=== PATIENT | female | born 1945 | race Caucasian/White ===

== ENCOUNTER 2016-10-18 13:48 | Emergency (ER) | payer OTHER ==
[~2016-10-18] VITALS: Ht 157.5 cm; Wt 68.0 kg
[2016-10-18 13:50] VITALS: BP 159/89; PULSE 68; RESP 15; TEMP 98.2; O2SAT 98
--- NOTE | 2016-10-18 15:17 | PD ---
HPI Chief Complaint: Head Injury Time Seen by Provider: 15:17 Travel History International Travel<30 days: No Contact w/Intl Traveler<30days: No Traveled to known affect area: No History of Present Illness HPI 71-year-old female came to the emergency room for headache and some amount of dizziness after a fall and head injury 2 weeks ago. Patient says that she slipped and fell backwards and smacked her head hard against a concrete floor. This happened 2 weeks ago. At that time she had a goose egg but did not come to the emergency room. Eventually the pain went away. But now she is getting vague headache and some dizzy sensation which are exacerbated during car rides or reading book. She does not usually get headaches. She has some nausea but no vomiting. Her appetite is still okay. Patient takes 1 baby aspirin every day. Vital signs are stable. [facility] Past Medical History Narrative Medical List of her past medical, surgical, social and family history is reviewed from the nursing note. Diabetes: Yes (TYPE2) ?: Not Social History Tobacco Use: No Allergies-Medications (Allergen,Severity, Reaction): Coded Allergies: Penicillin (Verified Allergy, Intermediate, Rash, 10/18/16) Comments List of her allergies reviewed from the nursing note. Reported Meds & Prescriptions Reported Meds & Active Scripts Active Reported Aspirin Children's (Aspirin) 81 Mg Chew 81 Mg CHEW DAILY Verapamil (Verapamil HCl) 120 Mg Tab 240 Mg PO DAILY Levothyroxine (Levothyroxine Sodium) 50 Mcg Tab 50 Mcg PO DAILY Simvastatin 20 Mg Tab 20 Mg PO DAILY Metoprolol Succinate ER 24 HR (Metoprolol Succinate) 25 Mg Tab 25 Mg PO DAILY Narrative Medication List of her home medications reviewed from the nursing note. Review of Systems Except as stated in HPI: all other systems reviewed are Neg Physical Exam Narrative GENERAL: Awake, alert, anxious, no obvious distress SKIN: Focused skin assessment warm/dry. HEAD: Atraumatic. Normocephalic. EYES: Pupils equal and round. No scleral icterus. No injection or drainage. ENT: No nasal bleeding or discharge. Mucous membranes pink and moist. NECK: Trachea midline. No JVD. CARDIOVASCULAR: Regular rate and rhythm. No murmur appreciated. RESPIRATORY: No accessory muscle use. Clear to auscultation. Breath sounds equal bilaterally. GASTROINTESTINAL: Abdomen soft, non-tender, nondistended. Hepatic and splenic margins not palpable. MUSCULOSKELETAL: No obvious deformities. No clubbing. No cyanosis. No edema. NEUROLOGICAL: Awake and alert. No obvious cranial nerve deficits. Motor grossly within normal limits. Normal speech. PSYCHIATRIC: Appropriate mood and affect; insight and judgment normal. Data Data Last Documented VS Orders Ct Brain W/O Iv Contrast(Rout) (10/18/16 ) Ct Cerv Spine W/O Contrast (10/18/16 ) MDM Medical Decision Making Medical Screen Exam Complete: Yes Emergency Medical Condition: Yes Medical Record Reviewed: Yes Differential Diagnosis Intracranial bleed, concussion Narrative Course 5:[address] scan report of the C-spine and brain is back and is negative for any acute injuries. I'll discharge her home. Procedures EKG Prior to Arrival: No Diagnosis Primary Impression: Postconcussion syndrome Referrals: Primary Care Physician Additional Instructions: Drink lots of fluid and caffeinated beverage. Do not read books her newspaper find Ciro to much, limit watching television, computer, tablets, smartphone etc. to no more than 30-60 minutes a day. Follow-up with your primary care if the symptoms persist. He should not be driving until your completely symptom- free. Med/Other Pt SpecificInfo: No Change to Meds Disposition: 01 DISCHARGE HOME Condition: Stable Meg Patton MD Oct 18, 2016 15:17 etc. to no more than 30-60 minutes a day. Follow-up with your primary care if the symptoms persist. He should not be driving until your completely symptom- free. Med/Other Pt SpecificInfo: No Change to Meds Disposition: DISCHARGE HOME Condition: Meg Billings MD Oct 18, 2016 15:17
[2016-10-18] MEDS ORDERED: VERA120T3 PO (15:29)
[2016-10-18] MEDS ORDERED: ASPI81CH7 CHEW (15:29)
[2016-10-18] MEDS ORDERED: SIMV20TA PO (15:29)
[2016-10-18] MEDS ORDERED: LEVO50TA4 PO (15:29)
[2016-10-18] MEDS ORDERED: METO25TA6 PO (15:29)
--- NOTE | 2016-10-18 16:47 | RADRPT ---
EXAM DATE/TIME: 10/18/2016 16:29 [facility] COMPARISON: No previous studies available for comparison. INDICATIONS : Patient fell and hit hit 2 weeks ago, complains of headache. RADIATION DOSE: 29.66 CTDIvol (mGy) MEDICAL HISTORY : Hypertension. Diabetes mellitus type 2. A-fib SURGICAL HISTORY : None. ENCOUNTER: Initial ACUITY: 2 weeks PAIN SCALE: 5/10 LOCATION: cranial TECHNIQUE: Multiple contiguous axial images were obtained of the head. Using automated exposure control and adj ustment of the mA and/or kV according to patient size, radiation dose was kept as low as reasonably a chievable to obtain optimal diagnostic quality images. DICOM format image data is available electro nically for review and comparison. FINDINGS: CEREBRUM: The ventricles are normal for age. No evidence of midline shift, mass lesion, hemorrhage or acute in farction. No extra-axial fluid collections are seen. POSTERIOR FOSSA: The cerebellum and brainstem are intact. The 4th ventricle is midline. The cerebellopontine angle i s unremarkable. EXTRACRANIAL: The visualized portion of the orbits is intact. SKULL: The calvaria is intact. No evidence of skull fracture. CONCLUSION: Normal examination. Topher Mixon MD on October 18, 2016 at 16:45 Board Certified Radiologist. This report was verified electronically.
--- NOTE | 2016-10-18 16:56 | RADRPT ---
EXAM DATE/TIME: 10/18/2016 16:29 [facility] COMPARISON: No previous studies available for comparison. INDICATIONS : Patient fell 2 weeks ago hitting head, complains of headache. RADIATION DOSE: 18.97 CTDIvol (mGy) MEDICAL HISTORY : Hypertension. Diabetes mellitus type 2. A-fib SURGICAL HISTORY : None. ENCOUNTER: Initial ACUITY: 2 weeks PAIN SCALE: 5/10 LOCATION: Left neck TECHNIQUE: Volumetric scanning of the cervical spine was performed. Multiplanar reconstructions in the sagittal, coronal and oblique axial planes were performed. Using automated exposure control and adjustment o f the mA and/or kV according to patient size, radiation dose was kept as low as reasonably achievable to obtain optimal diagnostic quality images. DICOM format image data is available electronically f or review and comparison. FINDINGS: VERTEBRAE: Normal vertebral body height. Left-sided degenerative facet disease at C4-5. Subchondral cyst in C7. ALIGNMENT: No evidence of subluxation. C2-C3: The bony spinal canal is normal in size. No evidence of disc bulge or herniation. The neural forami na are bilaterally patent. C3-C4: The bony spinal canal is normal in size. No evidence of disc bulge or herniation. The neural forami na are bilaterally patent. C4-C5: The bony spinal canal is normal in size. No evidence of disc bulge or herniation. The neural forami na are bilaterally patent. C5-C6: The bony spinal canal is normal in size. No evidence of disc bulge or herniation. The neural forami na are bilaterally patent. C6-C7: The bony spinal canal is normal in size. No evidence of disc bulge or herniation. The neural forami na are bilaterally patent. C7-T1: The bony spinal canal is normal in size. No evidence of disc bulge or herniation. The neural forami na are bilaterally patent. CONCLUSION: Left-sided degenerative facet disease at C4-5. No endplate fracture is identified. Topher Mixon MD on October 18, 2016 at 16:54 Board Certified Radiologist. This report was verified electronically.
== END 2016-10-18 17:39 | disposition home or self-care (01) ==
LOC: NEPD 13:48
DX: F07.81 Postconcussional syndrome (principal); R42 Dizziness and giddiness; R11.0 Nausea; Z79.82 Long term (current) use of aspirin; E11.9 Type 2 diabetes mellitus without complications; W01.0XXD Fall on same level from slipping, tripping and stumbling without subsequent striking against object, subsequent encounter
CPT/HCPCS: 70450; 72125; 99284

== ENCOUNTER 2018-05-26 10:07 | Observation (INO) ==
--- NOTE | 2018-05-26 12:15 | ED ---
HPI General Chief complaint: Chest Pain Stated complaint: Chest Pain Time Seen by Provider: 05/26/18 12:06 History of Present Illness HPI narrative: 72-year-old female with a history of hypertension, hyperlipidemia , type 2 diabetes, paroxysmal atrial fibrillation status post ablation presents to the emergency department for evaluation of bilateral arm pain and chest pain. Patient states that she has a history of chronic low back pain and for the past 2 months has been enrolled in physical therapy and strengthening which she has been doing regularly. States that since she has started these exercises she has noticed she has had soreness and muscle pain in bilateral bicep areas. States that she has not exercised for the last week however the muscle soreness and pain has persisted. States that also over the last 3-4 days she has noticed intermittent midsternal chest discomfort described as an aching pain. States that the arm pain has been a 6-7 on a scale of 1-10 and the chest pain has been about a 3 on a scale of 1-10. States that the pain has been random, no aggravating or alleviating factors. States that it is lasting for only a few minutes at a time and resolves on its own. She does note she is also had some abdominal discomfort intermittently for the last 3-4 weeks, endorses increased burping and flatulence. Denies fever, chills, nausea, vomiting, diarrhea, constipation, black or bloody stool, lightheadedness, dizziness, cough or cold symptoms, shortness of breath. States that she has never had a history of AK or stents, her last stress test was [address] Lua. Related Data Home Medications Medication Instructions Recorded Confirmed aspirin [Aspir-81] 81 mg PO DAILY 05/26/18 05/26/18 levothyroxine [Synthroid] 50 mcg PO DAILY 05/26/18 05/26/18 metoprolol tartrate 25 mg PO BID 05/26/18 05/26/18 simvastatin 20 mg PO QPM 05/26/18 05/26/18 verapamil 240 mg PO QAM 05/26/18 05/26/18 Allergies Allergy/AdvReac Type Severity Reaction Status Date / Time doxycycline Allergy Intermediate Rash Verified 05/26/18 12:07 penicillin G Allergy Intermediate Rash Verified 05/26/18 11:55 Review of Systems ROS: all other systems reviewed are negative [facility] Medical History Medical History Atrial fibrillation (Acute) Type 2 diabetes mellitus (Acute) Surgical History Surgical History History of back surgery (Acute) History of prior ablation treatment (Acute) Family History Family History Other Coronary artery disease involving mohegan coronary artery of mohegan heart with angina pectoris with documented spasm Social History Social History Substance History: No History of Abuse Second Hand Smoke Exposure: No Smoking Status: Never smoker How Often Do You Have a Drink Containing Alcohol: 2 to 4 times a month Recent Travel in [facility] within the Last 8 Weeks: No Recent Out of Country Travel within the Last 8 Weeks: No Immunization History Tetanus Immunization: >5 Years Exam Narrative Exam Narrative: GENERAL: Well-nourished and well-developed pleasant patient in no acute distress who is nontoxic appearing. SKIN: Warm and dry without any obvious rashes or lesions. HEAD: Normocephalic and atraumatic. EYES: No injection, drainage, or hyphema noted. PERRLA. EOMI. ENT: No nasal drainage noted. Oropharynx is clear. NECK: Supple and the trachea is midline. CARDIOVASCULAR: Regular rate and rhythm. RESPIRATORY: Breath sounds are equal bilaterally with no accessory muscle use, wheezing, rhonchi, or crackles. GASTROINTESTINAL: Abdomen is soft, non-tender, and nondistended. MUSCULOSKELETAL: No obvious deformities, swelling, cyanosis, or ecchymosis is present throughout the upper and lower extremities. Patient has full range of motion without any signs of neurovascular compromise. Distal pulses are 2+ throughout. NEUROLOGICAL: Awake, alert, and oriented. Normal speech and gait. Cranial nerves are grossly intact. Course Initial Documented Vital Signs Temperature 97.7 F 05/26/18 10:14 Pulse Rate 73 05/26/18 10:14 Respiratory Rate 18 05/26/18 10:14 Blood Pressure 169/86 H 05/26/18 10:14 Pulse Oximetry 97 05/26/18 10:14 Last Documented Vital Signs Temperature 97 F L 05/27/18 08:00 Pulse Rate 69 05/27/18 08:00 Respiratory Rate 15 05/27/18 08:00 Blood Pressure 130/61 05/27/18 08:00 Pulse Oximetry 95 05/27/18 08:08 Medical Decision Making LEO Attestation LEO supervised visit: Yes Attestation: I, Dr. Garza, have reviewed the advance practice practitioner's documentation and am in agreement, met with the patient face to face, made the diagnosis, and the medical decision making was done by me. *My assessment and Findings: Patient is a 72 year old female who comes in complaining of bilateral arm pain and chest pain. Exam shows no acute abnormalities. IV established, labs sent. Troponin is negative. Patient to be placed in chest pain center for further management. MDM Narrative Medical decision making narrative: 72-year-old female presents to the emergency department for evaluation of chest pain and arm pain. Patient is afebrile, vital signs are stable. Physical examination is essentially unremarkable. IV access is obtained, labs have been drawn and sent. Patient is placed on cardiac telemetry and pulse oximetry monitoring. Patient is not currently experiencing any chest pain. EKG shows normal sinus rhythm with no acute ST elevations or depressions. Reviewed by my attending physician Dr. Garza. CBC is within normal limits. Coags are unremarkable. CMP is unremarkable. Magnesium is within normal limits. Troponin is less than 0.02. Chest x-ray is negative. Patient has remained stable and without complaint while here in the ED. She'll be kept in chest pain center for repeat cardiac enzymes and possible stress testing. Medical Screen Exam Complete: Yes Emergency Medical Condition: Yes Differential Diagnosis Differential Diagnosis: Muscle strain versus muscle spasm versus electrolyte abnormality versus angina Lab Data Result diagrams: 05/26/18 12:10 05/26/18 12:10 Lab Results 05/26/18 05/26/18 05/26/18 Range/Units 12:10 12:10 12:10 WBC 4.6 (4.0-11.0) th/mm3 RBC 4.64 (4.00-5.30) mil/mm3 Hgb 13.2 (11.6-15.3) gm/dL Hct 39.9 (35.0-46.0) % MCV 85.9 (80.0-100.0) fL MCH 28.4 (27.0-34.0) pg MCHC 33.1 (32.0-36.0) % RDW 13.9 (11.6-17.2) % Plt Count 185 (150-450) th/mm3 MPV 9.9 (7.0-11.0) fL Neut % (Auto) 64.2 (16.0-70.0) % Lymph % (Auto) 25.4 (9.0-44.0) % [place] % (Auto) 6.9 (0.0-8.0) % Eos % (Auto) 2.5 (0.0-4.0) % Baso % (Auto) 1.0 (0.0-2.0) % Neut # (Auto) 3.0 (1.8-7.7) th/mm3 Lymph # (Auto) 1.2 (1.0-4.8) th/mm3 [place] # (Auto) 0.3 (0.0-0.9) th/mm3 Eos # (Auto) 0.1 (0.0-0.4) th/mm3 Baso # (Auto) 0.0 (0.0-0.2) th/mm3 WBC Differential . Differential Comment Auto diff final PT 9.9 (9.8-11.6) sec INR 1.0 Ratio APTT 24.2 (23.4-31.7) sec Sodium 143 (136-145) meq/L Potassium 4.1 (3.5-5.1) meq/L Chloride 107 (98-107) meq/L Carbon Dioxide 31.4 (21.0-32.0) meq/L Anion Gap 5 (5-15) meq/L BUN 8 (7-18) mg/dL Creatinine 0.74 (0.50-1.00) mg/dL Estimated GFR 78 L (>89) mL/min Random Glucose 145 H (74-106) mg/dL Calcium 8.7 (8.5-10.1) mg/dL Magnesium (1.5-2.5) mg/dL Total Bilirubin 0.6 (0.2-1.0) mg/dL AST 19 (15-37) U/L ALT 34 (10-53) U/L Alkaline Phosphatase 95 (45-117) U/L Total Creatine Kinase 68 (26-192) U/L Troponin I Less than 0.02 L (0.02-0.05) ng/mL Total Protein 7.3 (6.4-8.2) g/dL Albumin 4.0 (3.4-5.0) g/dL Lipase 103 (73-393) U/L 05/26/18 05/26/18 05/26/18 Range/Units 12:10 15:19 18:28 WBC (4.0-11.0) th/mm3 RBC (4.00-5.30) mil/mm3 Hgb (11.6-15.3) gm/dL Hct (35.0-46.0) % MCV (80.0-100.0) fL MCH (27.0-34.0) pg MCHC (32.0-36.0) % RDW (11.6-17.2) % Plt Count (150-450) th/mm3 MPV (7.0-11.0) fL Neut % (Auto) (16.0-70.0) % Lymph % (Auto) (9.0-44.0) % [place] % (Auto) (0.0-8.0) % Eos % (Auto) (0.0-4.0) % Baso % (Auto) (0.0-2.0) % Neut # (Auto) (1.8-7.7) th/mm3 Lymph # (Auto) (1.0-4.8) th/mm3 [place] # (Auto) (0.0-0.9) th/mm3 Eos # (Auto) (0.0-0.4) th/mm3 Baso # (Auto) (0.0-0.2) th/mm3 WBC Differential Differential Comment PT (9.8-11.6) sec INR Ratio APTT (23.4-31.7) sec Sodium (136-145) meq/L Potassium (3.5-5.1) meq/L Chloride (98-107) meq/L Carbon Dioxide (21.0-32.0) meq/L Anion Gap (5-15) meq/L BUN (7-18) mg/dL Creatinine (0.50-1.00) mg/dL Estimated GFR (>89) mL/min Random Glucose (74-106) mg/dL Calcium (8.5-10.1) mg/dL Magnesium 2.2 (1.5-2.5) mg/dL Total Bilirubin (0.2-1.0) mg/dL AST (15-37) U/L ALT (10-53) U/L Alkaline Phosphatase (45-117) U/L Total Creatine Kinase 65 54 (26-192) U/L Troponin I Less than 0.02 L Less than 0.02 L (0.02-0.05) ng/mL Total Protein (6.4-8.2) g/dL Albumin (3.4-5.0) g/dL Lipase (73-393) U/L Imaging Data Radiologist's impression: Chest X-Ray 05/26/18 12:06 CONCLUSION: Negative for acute process Discharge Plan Discharge Disposition Patient Disposition: ED Admit(ED Internal Use Only) Discharge Condition Condition: Stable Discharge Order Discharge Orders: ED Use Only Admit Order (Routine); Ordered 05/26/18 Ordered By: Jing Morrell Discharge Details Diagnosis: Chest pain Physicians Team ED Provider: Amisha Garza ED Midlevel Provider: Jing Morrell Primary Care Provider: Jose Lua Attending Provider: Baljinder Irvin Status ED Status: Left Department Discharge Information Discharge Date/Time: 05/26/18 15:13
[2018-05-26 12:32] LABS: Eos # (Auto) 0.1 th/mm3 (0.0-0.4); Eos % (Auto) 2.5 % (0.0-4.0); Hematocrit 39.9 % (35.0-46.0); Hemoglobin 13.2 gm/dL (11.6-15.3); Lymph # (Auto) 1.2 th/mm3 (1.0-4.8); Lymph % (Auto) 25.4 % (9.0-44.0); Mean Corpuscular HGB Conc 33.1 % (32.0-36.0); Mean Corpuscular Hemoglobin 28.4 pg (27.0-34.0); Mean Corpuscular Volume 85.9 fL (80.0-100.0); Mean Platelet Volume 9.9 fL (7.0-11.0); Mono # (Auto) 0.3 th/mm3 (0.0-0.9); Mono % (Auto) 6.9 % (0.0-8.0); Neut % (Auto) 64.2 % (16.0-70.0); Platelet Count 185 th/mm3 (150-450); Red Blood Count 4.64 mil/mm3 (4.00-5.30); Red Cell Distribution Width 13.9 % (11.6-17.2); White Blood Count 4.6 th/mm3 (4.0-11.0)
[2018-05-26 12:41] LABS: Activated Partial Thrombo Time 24.2 sec (23.4-31.7); Prothrombin Time 9.9 sec (9.8-11.6)
[2018-05-26 12:50] LABS: Alanine Aminotransferase 34 U/L (10-53); Anion Gap 5 meq/L (5-15); Aspartate Aminotransferase 19 U/L (15-37); Blood Urea Nitrogen 8 mg/dL (7-18); Calcium 8.7 mg/dL (8.5-10.1); Carbon Dioxide 31.4 meq/L (21.0-32.0); Chloride 107 meq/L (98-107); Glomerular Filtration Rate 78 mL/min (>89); Glucose,Random 145 mg/dL (74-106); Lipase 103 U/L (73-393); Potassium 4.1 meq/L (3.5-5.1); Sodium 143 meq/L (136-145)
[2018-05-26 12:54] LABS: Alkaline Phosphatase 95 U/L (45-117); Total Protein 7.3 g/dL (6.4-8.2)
[2018-05-26 12:58] LABS: Creatine Kinase 68 U/L (26-192)
--- NOTE | 2018-05-26 13:13 | XR ---
EXAM DATE: 05/26/2018 12:57 PM EST AGE/SEX: 72 years / Female INDICATIONS: Chest discomfort and pain radiating down both arms. CLINICAL DATA: This is the patient's initial encounter. Patient reports that signs and symptoms have been present for 1 day and indicates a pain score of 6/10. MEDICAL/SURGICAL HISTORY: None. None. COMPARISON: No prior exams available for comparison. FINDINGS: A single AP view of the chest demonstrates the lungs to be symmetrically aerated without evidence of mass, infiltrate or effusion. The cardiomediastinal contours are unremarkable. Osseous structures a re intact. CONCLUSION: Negative for acute process Electronically signed by: Jaylon Enriquez MD Board Certified Radiologist 05/26/2018 1:12 PM EST
[2018-05-26] MEDS ORDERED: ALPRAZolam 0.25 MG Tablet PO PRN (15:16)
[2018-05-26] MEDS ORDERED: Acetaminophen 500 MG Tablet PO PRN (15:18)
--- NOTE | 2018-05-26 15:28 | P.HPCA ---
History of Present Illness Primary Care Physician: Jose Lua MD Chief Complaint: Upper arm and shoulder pain with some chest and abdominal pain History of Present Illness: 72-year-old lady is presentation is well-documented in the emergency room history and physical however she presented with complaints of upper arm and shoulder pain, intermittent short chest pain and intermittent abdominal pain. Patient has a history of hypertension diabetes hyperlipidemia and paroxysmal atrial fibrillation status post ablation about [address] Montalvo. She also has chronic low back pain with a history of surgery about 13 years ago. She has been into therapy with Dr. Henson but terminated that therapy with the intent of continuing to exercise at home. She has been trying to exercise at home for about a week and during that time pain in the muscles of her upper arms and shoulders have become quite bothersome. Her chest pain is intermittent not precipitated by any obvious events, is usually midsternal and lasted for only seconds with no radiation. She has no other associated symptoms although she does find that she has been belching more and that this sometimes relieves her abdominal component of this pain. She does have a distant history of ulcer disease but nothing recent. She describes her arm pain is about a 7 on a 10 scale but the chest pain is only about a 3 on a 10 scale her risk factors for cardiac disease include hypertension diabetes hyperlipidemia positive family history and a distant history of smoking which she stopped about 16 years ago. Review of Systems All other systems reviewed negative except as stated in HPI PMFSH - History History Provided By: Patient - Medical History Medical History: Medical History (Last Updated 05/26/18 @ 11:55 by Ruby Crowell RN) Atrial fibrillation Type 2 diabetes mellitus - Surgical History Surgical History: Surgical History (Last Updated 05/26/18 @ 11:55 by Ruby Crowell RN) History of back surgery History of prior ablation treatment - Family History Family History: Family History (Last Updated 05/26/18 @ 15:22 by Baljinder Irvin MD) Other Coronary artery disease involving redding coronary artery of redding heart with angina pectoris with documented spasm - Tobacco History Smoking Status: Former smoker - Alcohol History How Often Do You Have a Drink Containing Alcohol: Monthly or less - Substance Use History Substance History: No History of Abuse - Travel History Recent Travel in the [place] Within the Last 8 Weeks: No Recent Travel Out of the Country Within the Last 8 Weeks: No - Immunization History Tetanus Immunization: >5 Years Medications and Allergies Active Medications: Active Medications Sodium Chloride (Ns Flush) 2 ml IV.FLUSH UNSCH PRN PRN Reason: FLUSH AFTER USING IV ACCESS Allergies Allergy/AdvReac Type Severity Reaction Status Date / Time doxycycline Allergy Intermediate Rash Verified 05/26/18 12:07 penicillin G Allergy Intermediate Rash Verified 05/26/18 11:55 Home Medications Medication Instructions Recorded Confirmed Type aspirin [Aspir-81] 81 mg PO DAILY 05/26/18 05/26/18 History levothyroxine [Synthroid] 50 mcg PO DAILY 05/26/18 05/26/18 History metoprolol tartrate 25 mg PO BID 05/26/18 05/26/18 History simvastatin 20 mg PO QPM 05/26/18 05/26/18 History verapamil 240 mg PO QAM 05/26/18 05/26/18 History Exam Vital signs: Vital Signs 05/26/18 10:14 05/26/18 11:55 05/26/18 12:08 Temperature 97.7 F Pulse Rate 73 60 59 L Respiratory Rate 18 20 Blood Pressure 169/86 H 154/67 H Pulse Oximetry 97 98 98 Intake & Output 05/25/18 05/26/18 05/26/18 18:59 06:59 18:59 Weight 72.575 kg Narrative: Well-nourished well-developed lady in no acute distress resting comfortably in bed. Skin warm dry normal texture turgor Head normocephalic atraumatic hair normal distribution and texture Eyes PERRLA EOMI sclera clear Mouth mucous membranes moist and well papillated uvula midline no lesions, upper and lower plates in place Neck supple no JVD masses nodes or bruits Chest nontender and auscultation reveals no rales wheezes or rhonchi Cardiovascular rhythm is regular there are no gallops rubs or murmurs Abdomen is soft nontender no guarding or rebound no hepatosplenomegaly or masses Extremities no clubbing cyanosis or edema pulses are good Neurologic cranial nerves exclusive of testing olfactory optic and acoustic are intact. Motor is 5+ and equal upper lower and symmetric Psychiatric affect and mood and judgment seem intact Results 05/26/18 12:10 05/26/18 12:10 Cardiac Enzymes 05/26/18 Range/Units 12:10 AST 19 (15-37) U/L Troponin I Less than 0.02 L (0.02-0.05) ng/mL Coagulation 05/26/18 Range/Units 12:10 PT 9.9 (9.8-11.6) sec APTT 24.2 (23.4-31.7) sec CBC 05/26/18 Range/Units 12:10 WBC 4.6 (4.0-11.0) th/mm3 RBC 4.64 (4.00-5.30) mil/mm3 Hgb 13.2 (11.6-15.3) gm/dL Hct 39.9 (35.0-46.0) % Plt Count 185 (150-450) th/mm3 Neut # (Auto) 3.0 (1.8-7.7) th/mm3 Lymph # (Auto) 1.2 (1.0-4.8) th/mm3 [place] # (Auto) 0.3 (0.0-0.9) th/mm3 Eos # (Auto) 0.1 (0.0-0.4) th/mm3 Baso # (Auto) 0.0 (0.0-0.2) th/mm3 Comprehensive Metabolic Panel 05/26/18 Range/Units 12:10 Sodium 143 (136-145) meq/L Potassium 4.1 (3.5-5.1) meq/L Chloride 107 (98-107) meq/L Carbon Dioxide 31.4 (21.0-32.0) meq/L BUN 8 (7-18) mg/dL Creatinine 0.74 (0.50-1.00) mg/dL Calcium 8.7 (8.5-10.1) mg/dL AST 19 (15-37) U/L ALT 34 (10-53) U/L Alkaline Phosphatase 95 (45-117) U/L Total Protein 7.3 (6.4-8.2) g/dL Albumin 4.0 (3.4-5.0) g/dL Intake and Output 05/26/18 05/26/18 05/26/18 06:59 14:59 22:59 Other: Weight 72.575 kg Patient Weight 05/27/18 06:59 Weight 72.575 kg - Imaging and Cardiology Imaging: Impressions Chest X-Ray 05/26/18 12:06 CONCLUSION: Negative for acute process EKG interpretations - EKG EKG results cardiology: WNL Caprini VTE Risk Assessment Caprini VTE Risk Assessment: No/Low Risk (score <= 1) Caprini Risk Assessment Model: Point Value = 1 Point Value = 2 Point Value = 3 Point Value = 5 Age 41-60 Minor surgery BMI > 25 kg/m2 Swollen legs Varicose veins or History of unexplained or recurrent spontaneous Oral contraceptives or hormone replacement Sepsis (< 1 month) Serious lung disease, including pneumonia (< 1 month) Abnormal pulmonary function Acute myocardial infarction Congestive heart failure (< 1 month) History of inflammatory bowel disease Medical patient at bed rest Age 61-74 Arthroscopic surgery Major open surgery (> 45 min) Laparoscopic surgery (> 45 min) Malignancy Confined to bed (> 72 hours) Immobilizing plaster cast Central venous access Age >= 75 History of VTE Family history of VTE Factor V Leiden Prothrombin [id number] Lupus anticoagulant Anticardiolipin antibodies Elevated serum homocysteine Heparin-induced thrombocytopenia Other congenital or acquired thrombophilia Stroke (< 1 month) Elective arthroplasty Hip, pelvis, or leg fracture Acute spinal cord injury (< 1 month) Prophylaxis Regimen: Total Risk Factor Score Risk Level Prophylaxis Regimen 0-1 Low Early ambulation 2 Moderate Order ONE of the following: *Sequential Compression Device (SCD) *Heparin 5000 units SQ BID 3-4 Higher Order ONE of the following medications: *Heparin 5000 units SQ TID *Enoxaparin/Lovenox 40 mg SQ daily (WT < 150 kg, CrCl > 30 mL/min) *Enoxaparin/Lovenox 30 mg SQ daily (WT < 150 kg, CrCl > 10-29 mL/min) *Enoxaparin/Lovenox 30 mg SQ BID (WT < 150 kg, CrCl > 30 mL/min) AND/OR *Sequential Compression Device (SCD) 5 or more Highest Order ONE of the following medications: *Heparin 5000 units SQ TID (Preferred with Epidurals) *Enoxaparin/Lovenox 40 mg SQ daily (WT < 150 kg, CrCl > 30 mL/min) *Enoxaparin/Lovenox 30 mg SQ daily (WT < 150 kg, CrCl > 10-29 mL/min) *Enoxaparin/Lovenox 30 mg SQ BID (WT < 150 kg, CrCl > 30 mL/min) AND *Sequential Compression Device (SCD) Assessment and Plan - Plan We will rule out this patient using standard chest pain center protocol but unfortunately this will require her remaining the night in the chest pain center. If she rules out as expected she can be stress test and in the morning and if negative she can be discharged back to Dr. Jeremias rodarte. Code Status: Full code Discussed Condition With: Discussed this in full with the patient Discharge Planning: We will discharge in the morning if her stress test is negative. - Attending Attestation I attest to the fact that the evaluation and treatment rendered this patient is appropriate for her presentation.
[2018-05-26 16:30] LABS: Creatine Kinase 65 U/L (26-192)
[2018-05-26] MEDS: Verapamil SR 240 MG Tablet PO SCH (18:06)
[2018-05-26 20:11] LABS: Creatine Kinase 54 U/L (26-192)
[2018-05-26] MEDS: Metoprolol Tartrate 25 MG Tablet PO SCH (21:39)
--- NOTE | 2018-05-27 08:39 | P.PNCA ---
Subjective Interval history: No further chest pain. Offers no complaints. Medications and Allergies Active Medications: Active Medications Acetaminophen (Tylenol) 500 mg PO Q6H PRN PRN Reason: pain scale 1-5 Hydrocodone Bitart/Acetaminophen ([place] 7.5/325) 1 tab PO Q6H PRN PRN Reason: pain scale 6-10 Albuterol (Duoneb Neb (Prn)) 1 ampul NEB Q4HR NEB PRN PRN Reason: SHORTNESS OF BREATH/WHEEZING Alprazolam (Xanax) 0.25 mg PO Q8H PRN PRN Reason: ANXIETY Aspirin (Aspirin) 325 mg PO DAILY [facility] Clonidine HCl (Catapres) 0.1 mg PO Q6H PRN PRN Reason: SBP >165 OR DBP > 110 Levothyroxine Sodium (Synthroid) 50 mcg PO DAILY [facility] Metoprolol Tartrate (Lopressor) 25 mg PO BID [facility] Last Admin: 05/26/18 21:39 Dose: 25 mg Ondansetron HCl (Zofran Inj) 4 mg IV.PUSH Q6H PRN PRN Reason: NAUSEA Pravastatin Sodium (Pravachol) 40 mg PO QPM [facility] Last Admin: 05/26/18 18:06 Dose: 40 mg Sodium Chloride (Ns Flush) 2 ml IV.FLUSH UNSCH PRN PRN Reason: FLUSH AFTER USING IV ACCESS Sodium Chloride (Ns Flush) 2 ml IV.FLUSH BID [facility] Last Admin: 05/26/18 21:42 Dose: 2 ml Sodium Chloride (Ns Flush) 2 ml IV.FLUSH PRN PRN PRN Reason: FLUSH AFTER USING IV ACCESS Verapamil HCl (Isoptin Sr) 240 mg PO DAILY [facility] Last Admin: 05/26/18 18:06 Dose: Not Given Allergies Allergy/AdvReac Type Severity Reaction Status Date / Time doxycycline Allergy Intermediate Rash Verified 05/26/18 12:07 penicillin G Allergy Intermediate Rash Verified 05/26/18 11:55 Home Medications Medication Instructions Recorded Confirmed Type aspirin [Aspir-81] 81 mg PO DAILY 05/26/18 05/26/18 History levothyroxine [Synthroid] 50 mcg PO DAILY 05/26/18 05/26/18 History metoprolol tartrate 25 mg PO BID 05/26/18 05/26/18 History simvastatin 20 mg PO QPM 05/26/18 05/26/18 History verapamil 240 mg PO QAM 05/26/18 05/26/18 History Physical Exam Vital signs: Vital Signs 05/26/18 10:14 05/26/18 11:55 05/26/18 12:08 Temperature 97.7 F Pulse Rate 73 60 59 L Respiratory Rate 18 20 Blood Pressure 169/86 H 154/67 H Pulse Oximetry 97 98 98 05/26/18 16:00 05/26/18 19:17 05/26/18 19:35 Temperature 98.2 F Pulse Rate 64 71 Respiratory Rate 18 20 Blood Pressure 141/69 H 133/61 Pulse Oximetry 97 93 L 98 05/26/18 20:00 05/26/18 23:59 05/27/18 00:10 Temperature 98.2 F Pulse Rate 60 67 70 Respiratory Rate 18 Blood Pressure 139/60 Pulse Oximetry 93 L 05/27/18 03:57 05/27/18 08:00 05/27/18 08:08 Temperature 98.0 F 97 F L Pulse Rate 64 69 Respiratory Rate 16 15 Blood Pressure 122/56 L 130/61 Pulse Oximetry 95 93 L 95 Intake & Output 05/26/18 05/27/18 05/27/18 18:59 06:59 18:59 Intake Total 240 / 240 Balance 240 / 240 Weight 74.642 kg Intake: Oral 240 / 240 Other: # Voids 2 Date of Last Bowel Movement 05/26/18 05/26/18 Weight On Admission 74 kg - Constitutional no acute distress, cooperative - Routine HEENT Exam Head: Present: normocephalic, atraumatic - Routine Respiratory Exam Present: CTA bilaterally - Routine Cardiovascular Exam Present: RRR. Absent: murmur, gallop Results 05/26/18 12:10 05/26/18 12:10 Cardiac Enzymes 05/26/18 05/26/18 05/26/18 Range/Units 12:10 15:19 18:28 AST 19 (15-37) U/L Troponin I Less than 0.02 L Less than 0.02 L Less than 0.02 L (0.02-0.05) ng/mL Coagulation 05/26/18 Range/Units 12:10 PT 9.9 (9.8-11.6) sec APTT 24.2 (23.4-31.7) sec CBC 05/26/18 Range/Units 12:10 WBC 4.6 (4.0-11.0) th/mm3 RBC 4.64 (4.00-5.30) mil/mm3 Hgb 13.2 (11.6-15.3) gm/dL Hct 39.9 (35.0-46.0) % Plt Count 185 (150-450) th/mm3 Neut # (Auto) 3.0 (1.8-7.7) th/mm3 Lymph # (Auto) 1.2 (1.0-4.8) th/mm3 [place] # (Auto) 0.3 (0.0-0.9) th/mm3 Eos # (Auto) 0.1 (0.0-0.4) th/mm3 Baso # (Auto) 0.0 (0.0-0.2) th/mm3 Comprehensive Metabolic Panel 05/26/18 Range/Units 12:10 Sodium 143 (136-145) meq/L Potassium 4.1 (3.5-5.1) meq/L Chloride 107 (98-107) meq/L Carbon Dioxide 31.4 (21.0-32.0) meq/L BUN 8 (7-18) mg/dL Creatinine 0.74 (0.50-1.00) mg/dL Calcium 8.7 (8.5-10.1) mg/dL AST 19 (15-37) U/L ALT 34 (10-53) U/L Alkaline Phosphatase 95 (45-117) U/L Total Protein 7.3 (6.4-8.2) g/dL Albumin 4.0 (3.4-5.0) g/dL Intake and Output 05/26/18 05/27/18 05/27/18 22:59 06:59 14:59 Intake Total 240 / 240 Balance 240 / 240 Intake: Oral 240 / 240 Other: # Voids 2 Date of Last Bowel Movement 05/26/18 Weight 74.642 kg Weight On Admission 74 kg - Imaging and Cardiology Imaging: Impressions Chest X-Ray 05/26/18 12:06 CONCLUSION: Negative for acute process Assessment and Plan - Assessment (1) Atypical chest pain Code(s): R07.89 - Other chest pain Status: Acute Plan: Admitted to chest pain center. ACS ruled out with 3 sets of EKGs and cardiac enzymes. Monitor on telemetry overnight. Previously seen and evaluated by Dr. Baljinder Irvin. Proceed with recommended exercise stress test this morning. If unremarkable, plan is to discharge home with follow-up with her primary care provider. - Plan We will rule out this patient using standard chest pain center protocol but unfortunately this will require her remaining the night in the chest pain center. If she rules out as expected she can be stress test and in the morning and if negative she can be discharged back to Dr. Jeremias rodarte. Discharge Planning: We will discharge in the morning if her stress test is negative.
[2018-05-27] MEDS ORDERED: Levothyroxine 50 MCG Tablet PO SCH (09:00)
[2018-05-27] MEDS ORDERED: Aspirin 325 MG Tablet PO SCH (09:00)
[2018-05-27] MEDS: Metoprolol Tartrate 25 MG Tablet PO SCH (09:02)
[2018-05-27] MEDS: Verapamil SR 240 MG Tablet PO SCH (09:04)
--- NOTE | 2018-05-27 12:26 | NM ---
EXAM DATE: 05/27/2018 12:05 PM EST AGE/SEX: 72 years / Female INDICATIONS: Angina. Abnormal Excercise Treadmill Test Substernal chest pain. CLINICAL DATA: This is the patient's initial encounter. Patient reports that signs and symptoms have been present for 1 day and indicates a pain score of 4/10. MEDICAL/SURGICAL HISTORY: Diabetes mellitus type II. Atrial fibrillation. . Back surgery and c ardiac ablation. COMPARISON: No prior exams available for comparison. DOSE: 8.5 mCi Tc 99m Myoview at rest 25.4 mCi [id number] at stress REST HEART RATE: 88 BPM TARGET HEART RATE: 128 BPM MAX HEART RATE: 144 BPM REST BLOOD PRESSURE: 132/78 mmHg MAX BLOOD PRESSURE: 180/82 mmHg EJECTION FRACTION: >70 % TECHNIQUE: The patient underwent upright treadmill exercise in the chest pain center. Continuous EC G tracing was monitored during stress. Gated SPECT imaging was performed after stress, and conventio nal SPECT imaging was performed at rest. The examination was performed on a SPECT/CT scanner, both a ttenuation-corrected and non-corrected datasets were reviewed. FINDINGS: Distribution: The maximum perfused segment at stress is in the lateral wall. Perfusion: The pattern of perfusion at stress is within normal limits. Gated Study: There are intact wall motion and wall thickening without hypokinetic or dyskinetic segme nts. The ejection fraction is calculated at >70%. RISK CATEGORY: Low (<1% Annual Mortality Rate) CONCLUSION: No reversible perfusion defects. No focal wall motion abnormalities. Electronically signed by: Giorgi Mccabe MD Board Certified Radiologist 05/27/2018 12:24 PM EST
[2018-05-27 12:47] VITALS: BP 139/70; PULSE 80; RESP 16; TEMP 97.4; O2SAT 94
--- NOTE | 2018-05-27 15:04 | ECG ---
Date Performed: 05/26/2018 Time Performed: 16:45:03 PTAGE: 72 years EKG: SINUS BRADYCARDIA BORDERLINE ECG PREVIOUS TRACING : 05/26/2018 11.40 Since previous tracing, no significant change noted DOCTOR: Papo Fontaine Interpretating Date/Time 05/27/2018 15:03:06
--- NOTE | 2018-05-27 15:04 | ECG ---
Date Performed: 05/26/2018 Time Performed: 18:32:49 PTAGE: 72 years EKG: Sinus rhythm NORMAL ECG PREVIOUS TRACING : 05/26/2018 16.45 Since previous tracing, no significant change noted DOCTOR: Papo Fontaine Interpretating Date/Time 05/27/2018 15:02:46
--- NOTE | 2018-05-27 15:08 | TR ---
Date Performed: 05/27/2018 Time Performed: 11:25:53 DOCTOR: Papo Fontaine DRUG LIST: CLINICAL HISTORY: CHEST PAIN CHEST PAIN REASON FOR TEST: REASON FOR ENDING: OBSERVATION: CONCLUSION: [place] protocol completed. Stopped sec to exceeding target heart rate and leg fatigue . Maximum QU=603 Max HR Achieved=96.0% Maximum YK=315/82 Total Exercise Time=2:31, No repord chest pa in. Mild st depression inferior and laterally. Rare PVC. Nuclear images pending. Normal bp response. Fair exercise tolerance. Recovery quick and unremarkable. COMMENTS: Lexiscan stress test was performed under standard four minute protocol. Radionuclide was injected one minute prior to ending the test. No electrocardiographic abormalities were present t o suggest ischemia. Nuclear imaging and interpretation are pending.
--- NOTE | 2018-05-27 15:10 | TR ---
Date Performed: 05/27/2018 Time Performed: 09:47:51 DOCTOR: Papo Fontaine DRUG LIST: CLINICAL HISTORY: CHEST PAIN REASON FOR TEST: Chest pain REASON FOR ENDING: OBSERVATION: CONCLUSION: [place] protocol completed. Stopped sec to leg fatigue and exceeding target heart rate . Maximum JP=580 Max HR Achieved=90.0% Maximum IM=630/82 Total Exercise Time=3:01. No reprod chest di scom[place]. T wave inversion lead III baselines. No st t segment changes at peak. No ectopy. Fair exerc ise tolerance. Normal bp response. Recovery quick and unremarkable. COMMENTS: Patient exercised using the [place] protocol. No electrocardiographic changes were seen to suggest ischemia. Hemodynamic response to exercise was normal. No significant arrhythmia was prese nt.
--- NOTE | 2018-05-27 21:32 | ECG ---
Date Performed: 05/26/2018 Time Performed: 11:40:23 PTAGE: 72 years EKG: Sinus rhythm NORMAL ECG NO PREVIOUS TRACING DOCTOR: Marcellus Brown Interpretating Date/Time 05/27/2018 21:30:21
== END 2018-05-27 13:42 | disposition home or self-care (01) ==
LOC: NEDA 10:07 → NEPD 10:07 → NEPHCDU 15:01
PROVIDERS: ADMIT Internal Medicine Interventional Cardiology; ATTEND Internal Medicine Interventional Cardiology
DX: R07.89 Other chest pain; E78.5 Hyperlipidemia, unspecified; E11.9 Type 2 diabetes mellitus without complications; R10.9 Unspecified abdominal pain; Z79.899 Other long term (current) drug therapy; Z79.82 Long term (current) use of aspirin; I10 Essential (primary) hypertension; I20.9 Angina pectoris, unspecified
CPT/HCPCS: 71010; 71045; 78452; 80053; 82550; 83690; 83735; 84484; 85025; 85610; 85730; 93005; 93017; 99285; A9502; G0378